=== PATIENT | female | born 1965 | race Caucasian/White ===

== ENCOUNTER 2018-11-08 10:00 | Emergency (ER) | payer OTHER ==
--- NOTE | 2018-11-08 11:20 | RAD REPORT ---
EXAM DESCRIPTION: RAD - Knee Left 3 View - 11/08/2018 11:09 am CLINICAL HISTORY: Nontraumatic knee pain COMPARISON: None. FINDINGS: No fracture, dislocation or periosteal reaction.No measurable joint effusion seen. Mild ma rginal spurring changes are present along the patella. Minimal tendon calcification at the patella in sertion to the tibia. No joint space narrowing. No soft tissue abnormality. IMPRESSION: Mild left knee joint degenerative change as detailed. No acute bone or joint finding. Clinical concerns for internal derangement or occult bony injury could be further assessed with MR im aging.
--- NOTE | 2018-11-08 11:23 | ER ---
Nurse's Notes [facility] Name: Daisy Ren Age: 53 yrs Sex: Female : 1965 Arrival Date: 11/08/2018 Time: 10:03 Bed 23 Private MD: Diagnosis: Left knee instability;ligamentous injury of PCL, left. Presentation: 11/08 10:27 Presenting complaint: Patient states: my L knee keeps coming out since yesterday hj afternoon, denies trauma to the area; pain is 3/10;. Transition of care: patient was not received from another setting of care. Onset of symptoms was November 08, 2018. Risk Assessment: Do you want to hurt yourself or someone else? Patient reports no desire to harm self or others. Initial Sepsis Screen: Does the patient meet any 2 criteria? No. Patient's initial sepsis screen is negative. Does the patient have a suspected source of infection? No. Patient's initial sepsis screen is negative. Care prior to arrival: None. 10:27 Method Of Arrival: Ambulatory 10:27 Acuity: BEE 4 hj Historical: - Allergies: 10:29 Codeine; hj - PMHx: 10:29 Hypertension; hj - PSHx: 10:29 Hysterectomy; hj - Immunization history:: Adult Immunizations up to date. - Ebola Screening: : Patient denies travel to an Ebola-affected area in the 21 days before illness onset. Screenin:04 Abuse screen: Denies threats or abuse. Denies injuries from another. Nutritional aj1 screening: No deficits noted. Tuberculosis screening: No symptoms or risk factors identified. 11:56 Fall Risk Fall in past 12 months (25 points). No secondary diagnosis (0 pts). No IV (0 aj1 pts). Ambulatory Aid- None/Bed Rest/Nurse Assist (0 pts). Gait- Normal/Bed Rest/Wheelchair (0 pts) Mental Status- Oriented to own ability (0 pts). Total Aguilera Fall Scale indicates Low Risk Score (25-44 pts). Family Present and informed to notify staff if they need to leave bedside. Assessment: 11:04 General: Appears in no apparent distress. comfortable, Behavior is calm, cooperative, aj1 appropriate for age. Pain: Denies pain. Neuro: Level of Consciousness is awake, alert, obeys commands, Oriented to person, place, time, situation. Cardiovascular: Patient's skin is warm and dry. Respiratory: Airway is patent Respiratory effort is even, unlabored, Respiratory pattern is regular, symmetrical. GI: No signs and/or symptoms were reported involving the gastrointestinal system. : No signs and/or symptoms were reported regarding the genitourinary system. EENT: No signs and/or symptoms were reported regarding the EENT system. Derm: No signs and/or symptoms reported regarding the dermatologic system. Skin is pink, warm \T\ dry. normal. Musculoskeletal: Range of motion: intact in all extremities, Patient states that her left knee has been giving out, states that right now she has no pain but when the knee pops out she has pain. Vital Signs: 10:29 BP 131 / 80; Pulse 67; Resp 18; Temp 96.4(O); Pulse Ox 97% on R/A; Weight 123.38 kg; hj Height 5 ft. 7 in. (170.18 cm); Pain 3/10; 11:04 BP 127 / 77; Pulse 61; Resp 18; Pulse Ox 96% on R/A; aj1 10:29 Body Mass Index 42.60 (123.38 kg, 170.18 cm) hj ED Course: 10:03 Patient arrived in ED. mr 10:28 Triage completed. hj 10:29 Arm band placed on left wrist. hj 10:45 Chris Vaughan MD is Attending Physician. ps1 11:00 Laura Alejandre, FLY is Primary Nurse. aj1 11:02 X-ray completed. Portable x-ray completed in exam room. Patient tolerated procedure jb2 well. 11:03 XRAY Knee LEFT 3 view In Process Unspecified. EDMS 11:04 Patient has correct armband on for positive identification. Bed in low position. aj1 11:04 No provider procedures requiring assistance completed. aj1 11:21 Herber Mendoza MD is Referral Physician. ps1 11:55 Patient did not have IV access during this emergency room visit. Knee immobilizer aj1 applied on left knee. Administered Medications: No medications were administered Outcome: 11:23 Discharge ordered by . ps1 11:56 Discharged to home ambulatory. aj1 11:56 Condition: good 11:56 Discharge instructions given to patient, Instructed on discharge instructions, follow up and referral plans. medication usage, Demonstrated understanding of instructions, follow-up care, medications, Prescriptions given X 3. 11:57 Patient left the ED. aj1 Signatures: Dispatcher [employer] EDLaura Joseph RN RN aj1 Rivera, Mary mr Buechter, Jesse jb2 Buddy Ayoub RN RN hj Singer, Phillip, MD MD ps1
--- NOTE | 2018-11-08 11:24 | EDPHYS ---
Physician Documentation [facility] Name: Daisy Ren Age: 53 yrs Sex: Female : 1965 Arrival Date: 11/08/2018 Time: 10:03 Bed 23 Private MD: ED Physician Chris Vaughan HPI: 11/08 11:15 This 53 yrs old Female presents to ER via Ambulatory with complaints of Knee ps1 Pain. 11:15 patient states that over the last 2 days she has had atraumatic left knee instability. ps1 States that she was walking in [place] and had marked laxity in the knee in which it felt that it nearly . She rested and then ambulated again and had a repeat experience. She applied KT tape to the knee and came in for evaluation. No swelling or obvious signs of trauma. . Historical: - Allergies: 10:29 Codeine; hj - PMHx: 10:29 Hypertension; hj - PSHx: 10:29 Hysterectomy; hj - Immunization history:: Adult Immunizations up to date. - Ebola Screening: : Patient denies travel to an Ebola-affected area in the 21 days before illness onset. ROS: 11:15 Constitutional: Negative for fever, chills, and weight loss, Eyes: Negative for injury, ps1 pain, redness, and discharge, Cardiovascular: Negative for chest pain, palpitations, and edema, Respiratory: Negative for shortness of breath, cough, wheezing, and pleuritic chest pain, Abdomen/GI: Negative for abdominal pain, nausea, vomiting, diarrhea, and constipation, Skin: Negative for injury, rash, and discoloration, Neuro: Negative for headache, weakness, numbness, tingling, and seizure. 11:15 MS/extremity: Positive for of the left knee, laxity and instability. Exam: 11:15 Constitutional: This is a well developed, well nourished patient who is awake, alert, ps1 and in no acute distress. Head/Face: Normocephalic, atraumatic. Eyes: Pupils equal round and reactive to light, extra-ocular motions intact. Lids and lashes normal. Conjunctiva and sclera are non-icteric and not injected. Chest/axilla: Normal chest wall appearance and motion. Nontender with no deformity. No lesions are appreciated. Cardiovascular: Regular rate and rhythm. No gallops, murmurs, or rubs. Normal PMI, no JVD. No pulse deficits. Respiratory: Lungs have equal breath sounds bilaterally, clear to auscultation and percussion. No rales, rhonchi or wheezes noted. No increased work of breathing, no retractions or nasal flaring. Abdomen/GI: Soft, non-tender, with normal bowel sounds. No distension or tympany. No guarding or rebound. No evidence of tenderness throughout. 11:15 Musculoskeletal/extremity: Extremities: grossly normal except: noted in the left knee: no valgus or varus instability. has moderate posterior laxity. , There is no evidence of deformity, ecchymosis, swelling. Vital Signs: 10:29 BP 131 / 80; Pulse 67; Resp 18; Temp 96.4(O); Pulse Ox 97% on R/A; Weight 123.38 kg; hj Height 5 ft. 7 in. (170.18 cm); Pain 3/10; 11:04 BP 127 / 77; Pulse 61; Resp 18; Pulse Ox 96% on R/A; aj1 10:29 Body Mass Index 42.60 (123.38 kg, 170.18 cm) hj MDM: 11:07 Patient medically screened. ps1 11:21 Data reviewed: vital signs, nurses notes, radiologic studies, and as a result, I will ps1 discharge patient. Counseling: I had a detailed discussion with the patient and/or guardian regarding: the historical points, exam findings, and any diagnostic results supporting the discharge/admit diagnosis, radiology results, the need for outpatient follow up, to return to the emergency department if symptoms worsen or persist or if there are any questions or concerns that arise at home. ED course: OP follow up for further diagnostic imaging after anaprox, medrol, robaxin, knee immobilizer. . 11/08 10:31 Order name: XRAY Knee LEFT 3 view; Complete Time: 11:24 Administered Medications: No medications were administered Disposition: 11/08/18 11:23 Discharged to Home. Impression: Left knee instability, ligamentous injury of PCL, left.. - Condition is Stable. - Discharge Instructions: Knee Immobilizer, Knee Pain. - Prescriptions for Anaprox DS 550 mg Oral Tablet - take 1 tablet by ORAL route every 12 hours As needed; 20 tablet. Robaxin 500 mg Oral Tablet - take 2 tablet by ORAL route every 6 hours As needed; 40 tablet. Medrol (Johnny) 4 mg Oral Tablets, Dose Pack - take 1 tablet by ORAL route as directed - follow package instructions; 1 packet. - Medication Reconciliation Form, Thank You Letter, Antibiotic Education, Prescription Opioid Use form. - Follow up: Herber Mendoza MD; When: 48 Hours; Reason: Further diagnostic work-up, Recheck today's complaints, Continuance of care. Follow up: Emergency Department; When: As needed; Reason: Worsening of condition. - Problem is new. - Symptoms are unchanged. Signatures: Dispatcher [employer] EDMS Laura Alejandre RN RN aj1 Buddy Ayoub RN RN hj Chris Vaughan MD MD ps1 Corrections: (The following items were deleted from the chart) 11:57 11:23 11/08/2018 11:23 Discharged to Home. Impression: Left knee instability; aj1 ligamentous injury of PCL, left.. Condition is Stable. Forms are Medication Reconciliation Form, Thank You Letter, Antibiotic Education, Prescription Opioid Use. Follow up: Dr. Herber Mendoza; When: 48 Hours; Reason: Further diagnostic work-up, Recheck today's complaints, Continuance of care. Follow up: Emergency Department; When: As needed; Reason: Worsening of condition. Problem is new. Symptoms are unchanged. ps1
== END 2018-11-08 11:57 | disposition home or self-care (01) ==
LOC: ER 10:00
DX: S83.522A Sprain of posterior cruciate ligament of left knee, initial encounter (principal); I10 Essential (primary) hypertension; Z88.5 Allergy status to narcotic agent
CPT/HCPCS: 99283

== ENCOUNTER 2019-11-13 17:14 | Emergency (ER) | payer OTHER ==
--- OUTSIDE RECORDS SUMMARY | 2019-11-13 17:18 | XMS REPORT | Continuity of Care Document ---
:1965 Author Organization [facility] t Address [address] [place] [address] Care Team Providers Name Role Phone Unavailable Unavailable Unavailable Payers Payer Name Policy Type Policy Number Effective Date Expiration Date S ource Problems This patient has no known problems. Allergies, Adverse Reactions, Alerts Allergy Allergy Status Severity Reaction(s) Onset Inactive Treating Comm ents Source Name Type Date Date Clinician codeine DA Active SV 2020-0 [facility] shell[facility] FA Active SV 2019-0 [facility] Medications This patient has no known medications. Procedures This patient has no known procedures. Results Test Description Test Time Test Comments Results Result Comments Source Novel Coronavirus 2018 Inhouse 2019-11-02 04:27:00 Test Item Value Reference Range Interpretation Comme nts Novel Coronavirus 2019 Inhouse (test code = COVNONPUI) Negative Negative Novel Coronavirus 2019 [id number] 04:27:00 Test Item Value Reference Range Interpretation Comments Novel Coronavirus 2019 Inhouse (test Negative Negative code = COVNONPUI) PROTHROMBIN [id number] 11:29:00 Test Item Value Reference Range Interpretation Comments PROTHROMBIN TIME PATIENT (test code 12.2 secs 10.4-12.4 N = PTP) THROMBOPLASTIN TIME [id number] 11:29:00 Test Item Value Reference Range Interpretation Comments THROMBOPLASTIN TIME PARTIAL (test 29.9 secs 22-38 N code = PTT) - XR CHEST 2 [id number] 11:19:00 Patient Name: DALE KOROMA Unit No: [id number] EXAMS: CPT CODE: [id number] XR CHEST 2 V 56004 CLINICAL HISTORY: PREOP COMPARISON: NONE PA and lateral films of the chest demonstrate that heart size is normal. Lung chatterjee are clear. No evidence of pneumonia or congestive failure is seen. Regional skeletal structures demonstrate no acute abnormality. IMPRESSION:No evidence of pneumonia or congestive failure is seen. at 1119 Reported and signed by: Bari Sanchez MD CC: vIis [place] Technologist: Wild Daly, RT, CT Trnscrbd D/ (1119) King Orig Print D/T: S: 10/31/2019 (1122) [facility] NAME: DALE KOROMA Radiology Department PHYS: Ivis Esteban MD [address] : 1965 AGE: 54 SEX: F [place], [place] [address] LOC: [place] PHONE #: [phone] EXAM DATE: 10/31/2019 STATUS: PRE [facility] FAX #: [phone] RAD NO: Page 1 Signed ReportCHEMISTRY 7 [id number] 11:18:00 Test Item Value Reference Range Interpretation Comments SODIUM (test code = NA) 142 mEq/L 135-145 N POTASSIUM (test code = K) 4.7 mEq/L 3.5-5.0 N CHLORIDE (test code = CL) 105 mEq/L 100-115 N CARBON DIOXIDE (test code = CO2) 29 mEq/L 22-31 N ANION GAP (test code = GAP) 12.80 10-20 N GLUCOSE (test code = GLU) 86 mg/dL 65-110 N BLOOD UREA NITROGEN (test code = 13 mg/dL 7-18 N BUN) GLOMERULAR FILTRATION RATE (test 75 ml/min >60 N code = GFR) CREATININE (test code = CREAT) 0.8 mg/dL 0.5-1.0 N CALCIUM (test code = CA) 8.8 mg/dL 8.4-10.2 N CBC W/AUTO [id number] 11:01:00 Test Item Value Reference Range Interpretation Comments WHITE BLOOD CELL (test code = WBC) 6.2 K/mm3 6.6-12.1 L RED BLOOD CELL (test code = RBC) 5.17 M/mm3 3.45-5.01 H HEMOGLOBIN (test code = HGB) 15.5 g/dL 10.7-13.9 H HEMATOCRIT (test code = HCT) 46.3 % 32.1-42.1 H MEAN CELL VOLUME (test code = MCV) 90 fL 84.1-94.8 N MEAN CELL HGB (test code = MCH) 30.0 pg 27-35 N MEAN CELL HGB CONCETRATION (test 33.5 gm/dL 32.2-34.1 N code = MCHC) RED CELL DISTRIBUTION WIDTH (test 12.7 % 12.4-16.5 N code = RDW) PLATELET COUNT (test code = PLT) 197 K/mm3 133-385 N MEAN PLATELET VOLUME (test code = 12.3 fl 9.1-12.7 N MPV) NEUTROPHIL % (test code = NT%) 63.4 % 56.5-79.4 N LYMPHOCYTE % (test code = LY%) 26.3 % 14.3-34.3 N MONOCYTE % (test code = MO%) 8.2 % 5.1-10.4 N EOSINOPHIL % (test code = EO%) 1.3 % 0.1-3.0 N BASOPHIL % (test code = BA%) 0.6 % 0.1-1.0 N NEUTROPHIL # (test code = NT#) 4.0 K/mm3 LYMPHOCYTE # (test code = LY#) 1.6 K/mm3 MONOCYTE # (test code = MO#) 0.5 K/mm3 EOSINOPHIL # (test code = EO#) 0.08 K/mm3 BASOPHIL # (test code = BA#) 0.0 K/mm3 RBC MORPHOLOGY REQUIRED (test code NORMAL NORMAL = RBCM) PLATELET MORPHOLOGY REQUIRED (test NORMAL NORMAL code = PLTMR) URINALYSIS [id number] 10:54:00 Test Item Value Reference Range Interpretation Comments UA COLOR (test code = COLU) YELLOW YELLOW UA APPEARANCE (test code = CLEAR CLEAR APPU) UA GLUCOSE DIPSTICK (test code NEGATIVE NEG = DGLUU) UA BILIRUBIN DIPSTICK (test NEGATIVE NEG code = BILU) UA KETONE DIPSTICK (test code NEGATIVE NEG = KETU) UA SPECIFIC GRAVITY (test code 1.015 1.001-1.035 N = SGU) UA BLOOD DIPSTICK (test code = NEG NEG AARON) UA PH DIPSTICK (test code = 5.0 5-9 BALJEET) UA PROTEIN DIPSTICK (test code NEGATIVE NEG = PROU) UA UROBILINIOGEN DIPSTICK NEGATIVE mg/dL NEG (test code = URO) UA NITRITE DIPSTICK (test code NEG NEG = LEONIE) UA LEUKOCYTE ESTERASE DIPSTICK NEG NEG (test code = LEUU) UA WBC (test code = WBCU) 0-2 #/hpf NONE SEEN UA RBC (test code = RBCU) 0-2 #/hpf NONE SEEN UA EPITHELIAL CELLS (test code RARE #/HPF RARE-FEW = EPIU) UA BACTERIA (test code = BACU) RARE /HPF RARE-FEW UA MUCUS (test code = MUCU) RARE NONE SEEN URINE SAMPLE: CLEAN CATCH
[2019-11-13 17:54] LABS: Absolute Lymphocytes (CBC) 2.7 K/uL (0.7-4.9); Basophils % 0.7 % (0-1.3); Hematocrit 44.4 % (36.0-45.0); Lymphocytes % 25.8 % (15.3-44.8); MPV 10.2 fL (7.6-11.3); RBC Red Blood Cell Count 5.16 M/uL (3.86-4.86)
[2019-11-13 17:59] LABS: Protime INR 1.05
[2019-11-13] MEDS ORDERED: DESMOPRESSIN 4 MCG/ML AMP ONE (18:05)
[2019-11-13 18:16] LABS: Albumin 3.8 g/dL (3.4-5.0); Bilirubin Total 0.4 mg/dL (0.2-1.0); Potassium 3.9 mmol/L (3.5-5.1); Protein, Total 7.3 g/dL (6.4-8.2)
--- NOTE | 2019-11-13 18:19 | ER ---
Nurse's Notes [facility] Name: Daisy Ren Age: 54 yrs Sex: Female : 1965 Arrival Date: 11/13/2019 Time: 17:17 Bed 4 Private MD: Diagnosis: Other abnormal uterine and vaginal bleeding Presentation: 11/12 17:17 Chief complaint: Patient states: s/p rectocele surgery 1.5 weeks ago, today reports sv heavy vaginal bleeding with clots. States she has gone through 4 pads in 20 mins and currently has a tampon in. 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 Risk Assessment: Do you want to hurt yourself or someone else? Patient reports no desire to harm self or others. Onset of symptoms was November 13, 2019. 17:17 Method Of Arrival: Ambulatory sv 17:17 Acuity: BEE 3 sv 17:54 Coronavirus screen: Patient denies a cough. Patient reports a measured and/or ph subjective temperature greater than 100.4F. Patient denies measured and/or subjective temperature greater than 100.4F prior to today's visit. Patient denies travel on a cruise ship or to a country the [facility] currently lists as an affected area. Patient denies contact with known and/or suspected case of COVID-19. Ebola Screen: No symptoms or risks identified at this time. Initial Sepsis Screen: Does the patient meet any 2 criteria? No. Patient's initial sepsis screen is negative. Does the patient have a suspected source of infection? No. Patient's initial sepsis screen is negative. Triage Assessment: 17:19 General: Appears in no apparent distress. uncomfortable, Behavior is cooperative, sv agitated. Neuro: Level of Consciousness is awake, alert, obeys commands, Oriented to person, place, time, situation, Gait is steady. Respiratory: Respiratory effort is even, unlabored, Respiratory pattern is regular, tachypnea. : Reports vaginal bleeding that is bright red, with clots, heavy flow since 20 mins ago. 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 - Social history:: Patient/guardian denies using alcohol, street drugs, Smoking status: Patient denies any tobacco usage or history of. - Family history:: not pertinent. - Hospitalizations: : No recent hospitalization is reported. Screenin:53 Abuse screen: Denies threats or abuse. Denies injuries from another. Nutritional ph screening: No deficits noted. Tuberculosis screening: No symptoms or risk factors identified. Fall Risk None identified. Assessment: 17:27 General: Appears in no apparent distress. uncomfortable, obese, well groomed, Behavior ph is cooperative, appropriate for age, anxious. Pain: Complains of pain in suprapubic area Quality of pain is described as crampy. Neuro: Level of Consciousness is awake, alert, obeys commands, Oriented to person, place, time, situation. Cardiovascular: Capillary refill < 3 seconds in bilateral fingers Patient's skin is warm and dry. Respiratory: Airway is patent Respiratory effort is even, unlabored, Respiratory pattern is regular, symmetrical. : Reports. 19:15 General: Appears in no apparent distress. comfortable, Behavior is calm, cooperative, rr5 appropriate for age, awaiting for other facility acceptance. Neuro: Level of Consciousness is awake, alert, obeys commands, Oriented to person, place, time, situation. Cardiovascular: Capillary refill < 3 seconds Patient's skin is warm and dry. Respiratory: Airway is patent Respiratory effort is even, unlabored, Respiratory pattern is regular, symmetrical. : Reports vaginal bleeding that is. EENT: No signs and/or symptoms were reported regarding the EENT system. Derm: Skin is intact, is healthy with good turgor, Skin temperature is warm. Musculoskeletal: Circulation, motion, and sensation intact. Capillary refill < 3 seconds. 19:45 Reassessment: report given to vasquez BILL from [facility] and accepted the case.rr5 20:14 Reassessment: Patient appears in no apparent distress at this time. Patient is alert, rr5 oriented x 3, equal unlabored respirations, skin warm/dry/pink. Patient states symptoms have improved. 20:18 Reassessment: Patient appears in no apparent distress at this time. Patient is alert, rr5 oriented x 3, equal unlabored respirations, skin warm/dry/pink. report given to [facility] awake alert no complaints made. Vital Signs: 17:27 BP 160 / 81; Pulse 106; Resp 18; Temp 98.2; Pulse Ox 99% on R/A; ph 19:36 BP 109 / 64; Pulse 100; Resp 16; Pulse Ox 99% ; rr5 20:14 BP 131 / 77; Pulse 79; Resp 17; Temp 98; Pulse Ox 99% ; rr5 ED Course: 17:17 Patient arrived in ED. sv 17:17 Sue Fallon, RN is Primary Nurse. ph 17:18 Marilee Ramachandran MD is Attending Physician. ma2 17:18 Triage completed. sv 17:19 Arm band placed on. sv 17:40 Assist provider with pelvic exam: Set up pelvic tray. Performed by Marilee Ramachandran MD ph Vaginal packing inserted. Patient tolerated poorly. 17:45 Initial lab(s) drawn, by sc, sent to lab. Inserted saline lock: 22 gauge in right kj1 antecubital area, using aseptic technique. Blood collected. 17:59 Patient has correct armband on for positive identification. Placed in gown. Bed in low ph position. Call light in reach. Side rails up X 1. Pulse ox on. NIBP on. Door closed. Noise minimized. Warm blanket given. 20:18 Patient transferred, IV remains in place. intact, No redness/swelling at site. rr5 Administered Medications: 18:25 Drug: Vasopressin 20 units Route: IV; Rate: calculated rate; Site: right antecubital; ph 19:00 Follow up: Response: No adverse reaction; IV Status: Completed infusion; IV Intake: [id number] 18:25 Drug: NS 0.9% 500 ml Route: IV; Rate: bolus; Site: right antecubital; ph 20:14 Follow up: Response: No adverse reaction; IV Status: Completed infusion; IV Intake: rr5 500ml Intake: 19:00 IV: 50ml; Total: 50ml. rr5 20:14 IV: 500ml; Total: 550ml. rr5 Outcome: 18:18 ER care complete, transfer ordered by . marbella 20:17 Transferred by ground EMS [facility] Transfer form completed. rr5 20:17 Condition: stable 20:17 Instructed on the need for transfer. 20:18 Patient left the ED. rr5 Signatures: Michelle Durán RN RN Sue Garcia RN RN Marilee Ramachandran MD MD ma2 Bowen Price RN RN rr5 Jie Caceres kj1 Corrections: (The following items were deleted from the chart) 17:31 17:17 Chief complaint: Patient states: s/p rectocele surgery 1.5 weeks ago, today sv reports heavy vaginal bleeding with clots. States she has gone through 4 pads in 20 mins and currently has a tampon in. She took her [employer] med. sv
--- NOTE | 2019-11-13 18:19 | EDPHYS ---
Physician Documentation [facility] Name: Daisy Ren Age: 54 yrs Sex: Female : 1965 Arrival Date: 11/13/2019 Time: 17:17 Bed 4 Private MD: ED Physician Marilee Ramachandran HPI: 11/12 17:45 This 54 yrs old Female presents to ER via Ambulatory with complaints of ma2 Vaginal Bleeding. 17:45 The patient presents with vaginal bleeding that is. Onset: The symptoms/episode ma2 began/occurred suddenly, 1 hour(s) ago. Associated signs and symptoms: Pertinent negatives: diarrhea, dysuria, hematuria, vaginal bleeding. Severity of symptoms: At their worst the symptoms were mild, in the emergency department the symptoms are unchanged. The patient has not experienced similar symptoms in the past. s/p rectocele 1 week ago here with vaginal bleeding, constant, she is vitally stable . 17:45 had 3 pads in the last 20 min. ma2 [employer]: 19:10 LMP N/A - Irregular menses rr5 Historical: - Allergies: 17:19 Codeine; sv - Home Meds: 17:59 candesartan 16 mg oral tab 1 tab once daily [Active]; fexofenadine 60 mg Oral tab 1 tab ph 2 times per day [Active]; fluticasone 50 mcg/actuation nasal spsn 1 spray once daily [Active]; guanfacine 1 mg Oral tab 1 tab once daily [Active]; montelukast 10 mg oral tab 1 tab once daily [Active]; - PMHx: 17:19 Hypertension; sv 17:38 von Willebrand factor; sv - PSHx: 17:19 Hysterectomy; sv 17:19 Rectocele; sv - Immunization history:: Adult Immunizations unknown. - Social history:: Patient/guardian denies using alcohol, street drugs, Smoking status: Patient denies any tobacco usage or history of. - Family history:: not pertinent. - Hospitalizations: : No recent hospitalization is reported. ROS: 17:45 Constitutional: Negative for fever, chills, and weight loss, Eyes: Negative for injury, ma2 pain, redness, and discharge, ENT: Negative for injury, pain, and discharge, Neck: Negative for injury, pain, and swelling, Cardiovascular: Negative for chest pain, palpitations, and edema, Respiratory: Negative for shortness of breath, cough, wheezing, and pleuritic chest pain. 17:45 All other systems are negative. Exam: 17:45 Constitutional: This is a well developed, well nourished patient who is awake, alert, ma2 and in no acute distress. Chest/axilla: Normal chest wall appearance and motion. Nontender with no deformity. No lesions are appreciated. Cardiovascular: Regular rate and rhythm with a normal S1 and S2. No gallops, murmurs, or rubs. Normal PMI, no JVD. No pulse deficits. Respiratory: Lungs have equal breath sounds bilaterally, clear to auscultation and percussion. No rales, rhonchi or wheezes noted. No increased work of breathing, no retractions or nasal flaring. Abdomen/GI: Soft, non-tender, with normal bowel sounds. No distension or tympany. No guarding or rebound. No evidence of tenderness throughout. Back: No spinal tenderness. No costovertebral tenderness. Full range of motion. Female : has mutiple sutures in perinium.. has tampon in.. she has minimal bleeding around tampon.No Normal external genitalia. Skin: Warm, dry with normal turgor. Normal color with no rashes, no lesions, and no evidence of cellulitis. MS/ Extremity: Pulses equal, no cyanosis. Neurovascular intact. Full, normal range of motion. Neuro: Awake and alert, GCS 15, oriented to person, place, time, and situation. Cranial nerves II-XII grossly intact. Motor strength 5/5 in all extremities. Sensory grossly intact. Cerebellar exam normal. Normal gait. Vital Signs: 17:27 BP 160 / 81; Pulse 106; Resp 18; Temp 98.2; Pulse Ox 99% on R/A; ph 19:36 BP 109 / 64; Pulse 100; Resp 16; Pulse Ox 99% ; rr5 20:14 BP 131 / 77; Pulse 79; Resp 17; Temp 98; Pulse Ox 99% ; rr5 MDM: 17:18 Patient medically screened. ma2 17:45 Differential diagnosis: dysfunctional uterine bleeding, menometrorrhagia, menorrhea, ma2 uterine fibroids. Data reviewed: vital signs, nurses notes. Counseling: I had a detailed discussion with the patient and/or guardian regarding: the historical points, exam findings, and any diagnostic results supporting the discharge/admit diagnosis, the presence of at least one elevated blood pressure reading (>120/80) during this emergency department visit, the need to transfer to another facility. Response to treatment: the patient's symptoms have markedly improved after treatment. ED course: i called her ophthalmology surgical technician dr. christopher and she advised that she is not oncall and to call dr. clements. I discussed with dr. clements and she advised that she check charts and call back.. i called dr. patel her deputy building guard and she advised to keep tampon and pack outer part of vagina with simple gauze, she accepted her to be transferred to [facility], and for patient to go to the ER. 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 ED course: patient already took 1 nasal spray of the humate p nasal spray prior to arrival.. dr. clements advised to give vasopressen 0.3 leslye/kg infusion if bleeding continue.. . 11/12 17:18 Order name: CBC with Diff; Complete Time: 18:19 ma2 11/12 17:18 Order name: CMP; Complete Time: 18:19 ma2 11/12 17:18 Order name: PT-INR; Complete Time: 18:19 ma2 11/12 17:18 Order name: Ptt, Activated; Complete Time: 18:19 ma2 11/12 17:18 Order name: Type And Screen; Complete Time: 19:19 ma2 Administered Medications: 18:25 Drug: Vasopressin 20 units Route: IV; Rate: calculated rate; Site: right antecubital; ph 19:00 Follow up: Response: No adverse reaction; IV Status: Completed infusion; IV Intake: [id number] 18:25 Drug: NS 0.9% 500 ml Route: IV; Rate: bolus; Site: right antecubital; ph 20:14 Follow up: Response: No adverse reaction; IV Status: Completed infusion; IV Intake: rr5 500ml Disposition: 11/13/19 18:18 Transfer ordered to [facility]. Diagnosis is Other abnormal uterine and vaginal bleeding. - Reason for transfer: Higher level of care. - Accepting physician is Dr. Villarreal. - Condition is Stable. - Problem is new. - Symptoms are unchanged. Signatures: Dispatcher [facility] EDMS LeeannaMichelle RN RN sv Nieto, Roman, MD MD rn Hall, Patricia, RN RN Marilee Ramachandran MD MD ma2 Bowen Price RN RN rr5 Corrections: (The following items were deleted from the chart) 20:18 18:18 11/13/2019 18:18 Transfer ordered to [facility]. Diagnosis is Other rr5 abnormal uterine and vaginal bleeding. Reason for transfer: Higher level of care. Accepting physician is Dr. Villarreal. Condition is Stable. Problem is new. Symptoms are unchanged. ma2
[2019-11-13] MEDS ORDERED: NA CHLORIDE 0.9% 50 ML IV ONE (18:20)
[2019-11-13] MEDS ORDERED: NA CHLORIDE 0.9% 500 ML ONE (18:20)
[2019-11-13 20:23] VITALS: O2SAT 99
[2019-11-13 20:25] VITALS: BP 131/77; TEMP 98
== END 2019-11-13 20:18 ==
LOC: ER 17:14
DX: N93.8 Other specified abnormal uterine and vaginal bleeding (principal); I10 Essential (primary) hypertension; Z88.5 Allergy status to narcotic agent
CPT/HCPCS: 96365; 96361; 85025; 36415; 86900; 86850; 85610; 86901; 85730; 80053; 99285; J2597; J7040

== ENCOUNTER 2022-12-29 06:59 | Inpatient (IN) | payer BC, OTHER ==
--- OUTSIDE RECORDS SUMMARY | 2022-12-29 07:01 | XMS REPORT | Continuity of Care Document ---
:1965 Author Organization [facility] t Address [address] [facility]. [address] [place] [address] Care Team Providers Name Role Phone Sophia Bassett MD Primary Care Physician Ivis Latham Attending Clinician Unavailable CHRISSY VALLE Attending Clinician Unavailable Referred, Self Admitting Clinician Unavailable KNOW, DOES_NOT Admitting Clinician Unavailable Physician, No Primary or Family Admitting Clinician Unavaila ble Payers Payer Name Policy Type Policy Number Effective Date Expiration Date S ource Problems Condition Condition Condition Status Onset Resolution Last Treating Co mments Source Name Details Category Date Date Treatment Clinician Date Acute Acute Disease Active Overview: Method i medial medial 5-[address] meniscus meniscus 00:00: g of this Hos jr tear of tear of 00 note l left knee left knee might be different from the original. Added automatic ally from request for surgery [id number] Loose body Loose body Disease Active Overview : Methodi of left of left 5-[address] knee knee 00:00: g of this Hospita 00 note l might be different from the original. Added automatic ally from request for surgery [id number] Allergies, Adverse Reactions, Alerts Allergy Allergy Status Severity Reaction(s) Onset Inactive Treating Comm ents Source Name Type Date Date Clinician Codeine Propensi Active Hypertension Elevated Methodi ty to 3-[address] adverse 00:00: pressure Hospita reaction 00 l s to drug Shellfis Propensi Active Swelling Meth manish h ty to 3-09 st Derived adverse 00:00: Hospita reaction 00 l s to drug codeine DA Active SV HIGH BLOOD 2019-0 [facility] PRESSURE 6-22 Clear 00:00: Roberto [address] [facility] shellfis FA Active SV ANAPHYLAXIS 2019-0 [facility] h SHOCK 6-22 Clear derived 00:00: Roberto [address] [facility] codeine DA Active SV 2020-0 [facility] 6-22 [facility] [place] shellfis FA Active SV 2020-0 [facility] h 6-22 [facility] derived 00:00: [facility] [place] Family History Family Member Diagnosis Comments Start Date Stop Date Source Natural mother Cancer [facility] Social History Social Habit Start Date Stop Date Quantity Comments Source Sexual orientation 2020-07-16 Heterosexual [facility]ist 12:20:36 (finding) Hospital Gender identity 2020-07-16 Identifies as Method ist 12:18:18 female gender [facility] (finding) Alcohol intake 2021-04-11 2021-04-11 Lifetime [facility] 00:00:00 00:00:00 non-drinker [facility] (finding) History of Social 2021-04-11 2021-04-[address] function 00:00:00 00:00:00 Hospital Tobacco use and 2020-07-17 2020-07-17 Smokeless tobacco Me [facility]ist exposure 00:00:00 00:00:00 non-user Hospital Sex Assigned At [birth year] F [facility] 00:00:00 00:00:00 Hospital Smoking Status Start Date Stop Date Source Never smoked tobacco [facility] Medications Ordered Filled Start Stop Current Ordering Indication Dosage Frequency Signature Comments Components Source Medication Medication Date Date Medication? Clinician (SIG) Name Name meloxicam 2020-05 Yes TAKE 1 Method i (MOBIC) 15 2-[address] mg tablet 00:00: MOUTH Hospita 00 EVERY DAY l methylPREDN Yes [id number] 40mg M ethodi ISolone 5-27 st acetate 13:45: Hospita (DEPO-MEDRO 00 l L) injection 40 mg meloxicam Yes TAKE 1 Method i (MOBIC) 15 5-[address] mg tablet 00:00: MOUTH [facility]ospita 00 EVERY DAY l methylPREDN Yes [id number] 40mg Methodi ISolone 07-17 acetate 15:45: Hospita (DEPO-MEDRO 00 l L) injection 40 mg fexofenadin Yes Method i e (Valerie 07-17 st Allergy) 08:53: Hospita 180 MG 15 l tablet candesartan Yes Method i (ATACAND) 07-17 st 32 MG 08:53: Hospita tablet 15 l ALPRAZolam Yes Methodi (Xanax) 0.5 07-17 st MG tablet 08:53: Hospita 15 l Procedures This patient has no known procedures. Plan of Care Planned Activity Planned Date Details Comments Source Future Scheduled 2022-12-14 [facility] Test 14:22:58 malignant neoplasm of colon (procedure) [code = 492919398] Future Scheduled 2022-12-14 [facility] Test 14:22:58 malignant neoplasm of colon (procedure) [code = 890185380] Future Scheduled 2022-12-14 [facility] Test 14:22:58 malignant neoplasm of colon (procedure) [code = 139373894] Future Scheduled 2022-12-14 Hepatitis C [facility] Test 14:22:58 screening (procedure) [code = 307463443] Future Scheduled 2022-12-14 [facility] Test 14:22:58 malignant neoplasm of cervix (procedure) [code = 588924303] Future Scheduled 2022-12-14 BREAST CANCER [facility] Test 14:22:58 SCREENING [code = BREAST CANCER SCREENING] Future Scheduled 2022-12-14 [facility] Test 14:22:58 malignant neoplasm of colon (procedure) [code = 334542901] Future Scheduled 2022-12-14 [facility] Test 14:22:58 malignant neoplasm of colon (procedure) [code = 409126435] Future Scheduled 2022-12-14 SHINGLES VACCINES [facility] Test 14:22:58 (1 of 2) [code = SHINGLES VACCINES (1 of 2)] Future Scheduled 2022-12-14 COVID-19 VACCINE (3 [facility] Hospital Test 14:22:58 - Pfizer series) [code = COVID-19 VACCINE (3 - Pfizer series)] Future Scheduled 2022-12-14 INFLUENZA VACCINE [facility] Hospital Test 14:22:58 [code = INFLUENZA VACCINE] Encounters Start End Encounter Admission Attending Care Care Encounter Source Date/Time Date/Time Type Type Clinicians Facility Department ID 2019-11-13 Inpatient [facility] ROSALIA [id number] [facility] 21:29:00 99 [facility] 2019-10-31 Inpatient ODESSA Latham, [facility] ANDREIA [id number] [facility] 11:00:00 Ivis 96 [facility] 2021-04-11 2021-04-11 Outpatient MAFFET, [facility] [id number] [place] 00:00:00 00:00:00 CHRISSY 824 Method i 2021-04-11 2021-04-11 Outpatient MAFFET, [facility] [id number] [place] 00:00:00 00:00:00 CHRISSY 959 Method i 2021-04-11 2021-04-11 Outpatient MAFFET, [facility] [id number] [place] 00:00:00 00:00:00 CHRISSY 269 Method i 2020-10-04 2020-10-04 Outpatient MAFFET, [facility] [id number] [place] 00:00:00 00:00:00 CHRISSY 612 Method i 2020-09-18 2020-09-18 Outpatient MAFFET, [facility] [id number] [place] 00:00:00 00:00:00 CHRISSY 159 Method i 2020-09-18 2020-09-18 Outpatient MAFFET, [facility] [id number] [place] 00:00:00 00:00:00 CHRISSY 776 Method i 2020-09-04 2020-09-04 Outpatient MAFFET, [facility] [id number] [place] 00:00:00 00:00:00 CHRISSY 481 Method i 2020-09-04 2020-09-04 Outpatient MAFFET, [facility] [id number] [place] 00:00:00 00:00:00 CHRISSY [address] 2020-07-17 2020-07-17 Outpatient MAFFET, [facility] [id number] [place] 00:00:00 00:00:00 CHRISSY [address] 2020-07-17 2020-07-17 Outpatient TIMFECindi, [facility] [id number] [place] 00:00:00 00:00:00 CHRISSY [address] 2019-10-31 2019-10-31 Outpatient ISABELL Latham [id number] [facility] 11:44:00 11:44:00 Ivis [facility] Results Test Description Test Time Test Comments Results Result Comments Source HGB HCT 2019-11-13 22:00:00 Test Item Value Reference Range Interpretation Comme nts HEMOGLOBIN (test code = HGB) 14.8 g/dL 10.7-13.9 H HEMATOCRIT (test code = HCT) 43.9 % 32.1-42.1 H Novel Coronavirus 2019 [id number] 04:27:00 Test Item Value Reference Range Interpretation Comments Novel Coronavirus 2019 Inhouse (test Negative Negative code = COVNONPUI) Novel Coronavirus 2019 [id number] 04:27:00 Test Item Value Reference Range Interpretation Comments Novel Coronavirus 2019 Inhouse (test Negative Negative code = COVNONPUI) PROTHROMBIN [id number] 11:29:00 Test Item Value Reference Range Interpretation Comments PROTHROMBIN TIME PATIENT (test code 12.2 secs 10.4-12.4 N = PTP) THROMBOPLASTIN TIME [id number] 11:29:00 Test Item Value Reference Range Interpretation Comments THROMBOPLASTIN TIME PARTIAL (test 29.9 secs 22-38 N code = PTT) - XR CHEST 2 [id number] 11:19:00 Patient Name: DALE KOROMA Unit No: [id number] EXAMS: CPT CODE: [id number] XR CHEST 2 V 18934 CLINICAL HISTORY: PREOP COMPARISON: NONE PA and lateral films of the chest demonstrate that heart size is normal. Lung chatterjee are clear. No evidence of pneumonia or congestive failure is seen. Regional skeletal structures demonstrate no acute abnormality. IMPRESSION: No evidence of pneumonia or congestive failure is seen. at 1119 Reported and signedby: Bari Sanchez MD CC: Ivis Latham Technologist: Wild Daly, RT, CT Trnscrbd D/ (1119) tMICHAELYOS Orig Print D/T: S: 10/31/2019 (1122) [facility] NAME: DALE KOROMA Radiology Department PHYS: Ivis Esteban MD [address] : 1965 AGE: 54 SEX: F [place], [place] [address] LOC: [place] PHONE #: [phone] EXAM DATE: 10/31/2019 STATUS: PRE SDC FAX #: [phone] RAD NO: Page 1 Signed ReportCHEMISTRY 7 [id number] 11:18:00 Test Item Value Reference Range Interpretation [...] CA) 8.8 mg/dL 8.4-10.2 N CBC W/AUTO [id number] 11:01:00 Test Item Value Reference Range Interpretation [...] (test NORMAL NORMAL code = PLTMR) URINALYSIS [id number] 10:54:00 Test Item Value Reference Range Interpretation [...] RARE NONE SEEN URINE SAMPLE: CLEAN CATCH Notes Date/Time Note Provider Source 2019-11-13 21:35:00-00:00 [facility] EMERGENCY PROVIDER REPORT REPORT#:[id number] REPORT STATUS: Signed DATE:11/13/19 TIME: 2134 PATIENT: DALE KOROMA UNIT #: [id number] ROOM/BED: AGE: 54 SEX: F PCP PHYS: Ivis Latham MD SERVICE AUTHOR: Misti Augustin MD * ALL edits or amendments must be made on the [employer] document * HPI- Female General Initial Greet Date/Time 11/13/192130 Presentation Chief Complaint Vaginal bleeding Hx Obtained From Patient )( Sudden in Onset? Yes Free Text HPI Notes Free Text HPI Notes This is a 54-year-old female with history of von Willebrand's disease and history of hysterectomy who is approximately 10 days status post posterior colporrhaphy for symptomatic stage II rectocele who presents the [facility] department for vaginal bleeding. Patient was initially seen by Julissa. She pr esented there due to heavy bleeding with passage of albert ts. Patient was treated with vaginal packing and IV vasopressin. Her symptoms resolved. She was macdonald sferred to our emergency department for further management. Seed Packer - Dr Ivis Latham Risk- Female Risk Stratification Ectopic No risk factors Review of Systems ROS Statements Complete sys rev neg except as marked. Basic Review of Systems Basic ROS EYES: No redness, RESP: No SOB , CV: No chest pain, HEM: No bleeding/ bruising, PSYCH: NL thought content Focused Review of Systems Constitutional Denies: Chills, Fatigue, Fever, Lethargy, Malais e, Recent wt loss, Weakness - generalized. Female Reports: Vaginal bleeding - abnl. Past Medical History - Adult Stated Complaint VAGINAL BLEEDING POST HYSTERECT ROSE Allergies Coded Allergies: codeine (Severe, HIGH BLOOD PRESSURE 10/31/19) shellfish derived (Severe, ANAPHYLAXIS SHOCK ) Home Medications Reported Medications MONTELUKAST (SINGULAIR) 10 MG PO BEDTIME FEXOFENADINE HCL (VALERIE ALLERGY) 60 MG PO BID FLUTICASONE PROPIONATE (FLONASE 50 MCG/ACT NASAL ) 1 SPRAY NASAL DAILY guanFACINE (TENEX) 1 MG PO DAILY CANDESARTAN (ATACAND) 16 MG PO DAILY Physical Exam Vital Signs Vital Signs First Documented: Result Date Time Pulse Ox 98 11/12 2130 B/P 124/63 11/12 2130 B/P Mean 83 11/12 2130 O2 Delivery Room air 11/12 2130 Temp 37.0 11/12 2130 Pulse 89 11/12 2130 Resp 18 11/12 2130 Last Documented: Result Date Time Pulse Ox 100 11/12 2302 B/P 150/71 11/12 2302 B/P Mean 97 11/12 2302 Temp 36.8 11/12 2302 Pulse 85 11/12 2302 Resp 17 11/12 2302 O2 Delivery Room air 11/12 2130 Review of Vital Signs Reviewed Basic Physical Exam Basic PE GEN: Well appearing /NAD, HEAD: Atraumatic/NC, EYES: PERRL, conj clear, ENT: Membranes moist (airway patent), NE CK: Supple (no stridor), RESP: No resp distress (normal RR), ABD: Soft/non-tender, EXT: No gross abnormality (FROM), SKIN: No rashes, warm/dry, NEURO: alert oriented , NEURO: gross movement NL, PSYCH: NL thought content (normal affect) Focused PE Genitourinary General Survey Coordinator present Text/Dict Notes upon inspection: suture material in place, slow ooze visualized from vagina, unable to visualize source of bleed digital exam: no retained tampon or packing Interpretation Diagnostics Lab Results Interpretation Results Laboratory Tests 11/13/192154: [Embedded Image Not Available] Laboratory Tests: 11/12 2154 Hematology Hgb (10.7 - 13.9 g/dL) 14.8 H Hct (32.1 - 42.1 %) 43.9 H Re-Evaluation MDM Free Text MDM Notes Free Text MDM Notes No heavy bleeding in the emergency department. Patient was seen by Dr. Latham and cleared for d ischarge. Return precautions given. ED Course Medication(s) Ordered Medication(s) Ordered: Disinfectants (For Non-Dermato Sig/Jaki Start time Last Medication Dose Route Stop Time Status Admin Silver Nitrate 4 TAMIKA X1ED STA 11/12 2230 DC TOPICAL 11/13 2231 Silver Nitrate 4 TAMIKA X1ED STA 11/12 2229 DC TOPICAL 11/12 2230 224 Silver Nitrate 2 TAMIKA X1ED STA 11/12 2214 DC / TOPICAL 11/13 2215 222 Consultation Consultation Referral/Consult Name Ivis Latham MD Apartment Manager Called DRAGLINE OILER Requested Call Time 2300 Requested Call Date 11/13/19 Call Returned Call returned Call Returned Time 2304 Call Returned Date 11/13/19 Apartment Manager Will see patient Patient Discharge Departure Vital Signs/Condition Vital Signs First Documented: Result Date Time Pulse Ox 98 11/12 2130 B/P 124/63 11/12 2130 B/P Mean 83 11/12 2130 O2 Delivery Room air 11/12 2130 Temp 37.0 11/12 2130 Pulse 89 11/12 2130 Resp 18 11/12 2130 Last Documented: Result Date Time Pulse Ox 100 11/12 2302 B/P 150/71 11/12 230 B/P Mean 97 11/12 2302 Temp 36.8 11/12 2302 Pulse 85 11/12 2303 Resp 17 11/123 O2 Delivery Room air 11/12 2130 All vital signs available at the time of this en try have been reviewed. Condition Stable Clinical Impression Clinical Impression Primary Impression: Vaginal bleeding Secondary Impressions: Von Willebrand disease Disposition Decision Discharge )( Discharged to Home Yes )( Time 2254 )( Date 11/13/19 Discharge/Care Plan Counseled Regarding Diagnosis, Lab resul ts, Need for follow-up, When to return to ED Referrals Self Referred at 00[facility] #:[id number] END OF REPORT 2019-11-03 12:42:00-00:00 [id number] [facility] [address] [place], [place] [address] PATIENT NAME: DALE KOROMA ADMIT DATE: 11/03/19 ACCOUNT NO: [id number] ROOM NO: AGE: 54 SEX: F ADMITTING PHYSICIAN: ATTENDING PHYSICIAN: Ivis Latham MD OPERATION DATE: 11/03/2019 PREOPERATIVE DIAGNOSES: 1. Rectocele. 2. Incomplete emptying with defecation. POSTOPERATIVE DIAGNOSES: 1. Rectocele. 2. Incomplete emptying with defecation. PROCEDURE: Posterior colporrhaphy. SURGEON: Ivis Latham MD COMPOUNDING PHARMACY TECHNICIAN: ANESTHESIA: LMA and local. ESTIMATED BLOOD LOSS: 30 mL. INDICATIONS: Ms. Koroma is a 54-year-old female who presented with symptomatic stage II rectocele. After extensive counseling, she elected to have surgical intervention. FINDINGS: Rectocele. PROCEDURE IN DETAIL: The patient was terrance en to the operating room where she was prepped and draped in the [facility] sterile fashion in a dorsal lithotomy position. The posterior vaginal wall and perineum were injected with 0.25% Marcaine with epinephrine. A small ellipti adi incision was made at the introitus and previous scarring was excised. The posterior vaginal epit helium was then opened in the midline. The vaginal epithelium was sharply diss ected from the underlying rectovaginal tissue. The rec tovaginal tissue was serially plicated with 2-0 PDS suture. The perineal body was reapproximated wit h 2-0 PDS suture. Good hemostasis was noted. The vaginal epithelium was lightly trimmed. The vaginal epithelium was closed in a continuous fashion wi th 2-0 Vicryl suture. Again, good hemostasis was noted. Vagina was irrigated, hemostasis assured. The patient tolerated the procedure well. Sponge , lap, and needle counts were correct x2. She was taken to the recovery room i n stable condition. Dictated By: Ivis Latham MD PATIENT NAME: DALE KOROMA 6 WT: OP:DERRICK/SILVERIO/MARY Conf#: [id number]/DID#: [id number] Authenticated by Ivis Latham MD On 11/04/19 12:20:54 PM at 1221 PATIENT NAME: DALE KOROMA 6 2019-10-31 10:51:00-00:00 [id number] [facility] [address] [place] [address] PATIENT NAME: DALE KOROMA ADMIT DATE: 11/03/19 ACCOUNT NO: [id number] ROOM NO: AGE: 54 SEX: F ADMITTING PHYSICIAN: ATTENDING PHYSICIAN: Ivis Latham MD Order: [id number] Test Reason : PRE-OP Test Date/Time Stamp: ThuOct 31 2019 10:51:52 Blood Pressure : / mmHG Vent. Rate : 060 BPM Atrial Rate : 060 BPM P-R Int : 162 ms QRS Dur : 090 ms QT Int : 430 ms P-R-T Axes : 041 069 040 degree s QTc Int : 430 ms Normal sinus rhythm Normal ECG No previous ECGs available Confirmed by MILLI GARIBAY MD ([id number]) on 11/03/19 4:37:04 PM Referred By: Ivis Latham Confirmed by:MILLI CABRALES MD Electronically Signed by Milli Garibay MD on 0 11/03/19 at 3374 PATIENT NAME: DALE KOROMA 96
[2022-12-29] MEDS ORDERED: MAGNESIUM SULFATE 1 gm IVPB 1 GM/100 ML BAG IV ONE (07:28)
[2022-12-29] MEDS ORDERED: METOPROLOL TAR 50 MG TAB ONE (07:28)
[2022-12-29] MEDS ORDERED: ASPIRIN 81 MG CHEWABLE TABLET ONE (07:28)
[2022-12-29] MEDS ORDERED: METOPROLOL TARTRATE 5 MG/5 ML INJ IV ONE (07:28)
[2022-12-29] MEDS ORDERED: FAMOTIDINE 20 MG/2 ML VIAL IV ONE (07:28)
[2022-12-29] MEDS ORDERED: NA CHLORIDE 0.9% 1,000 ML ONE (07:29)
[2022-12-29 07:36] LABS: Absolute Lymphocytes (CBC) 2.2 K/uL (0.7-4.9); Hematocrit 48.4 % (36.0-45.0); Lymphocytes % 27.6 % (15.3-44.8); MPV 9.3 fL (7.6-11.3); Platelets 243 thou/uL (152-406); Protime INR 1.06; RBC Red Blood Cell Count 5.69 M/uL (3.86-4.86)
--- NOTE | 2022-12-29 07:49 | RAD REPORT ---
EXAM DESCRIPTION: RAD - Chest Single View - 12/29/2022 7:42 am CLINICAL HISTORY: PALPITATIONS COMPARISON: Chest Pa And Lat (2 Views) dated 05/22/2021; Chest Pa And Lat (2 Views) dated 06/16/2016 FINDINGS: Lines: None. Lungs: No evidence of edema or pneumonia. Pleural: No significant pleural effusions or pneumothorax. Cardiac: The heart size is within normal limits. Mediastinum: Within normal limits. Bones: No acute fractures. Other: None IMPRESSION: No acute cardiopulmonary disease.
[2022-12-29 07:56] LABS: Albumin 3.9 g/dL (3.4-5.0); Bilirubin Direct 0.1 mg/dL (0-0.2); Bilirubin Indirect, Calculated 0.6 mg/dL (0.2-0.8); Bilirubin Total 0.7 mg/dL (0.2-1.0); Protein, Total 7.7 g/dL (6.4-8.2); Thyroid Stimulating Hormone 3.43 uIU/mL (0.358-3.740); Troponin High Sensitivity 8.7 pg/mL (<58.9)
[2022-12-29] MEDS ORDERED: ENOXAPARIN 100 MG/ML SYR SQ ONE (08:03)
[2022-12-29 08:06] LABS: Magnesium 2.1 mg/dL (1.6-2.4); Potassium 3.8 mEq/L (3.5-5.1)
--- NOTE | 2022-12-29 08:09 | ER ---
Nurse's Notes [facility] Name: Daisy Ren Age: 57 yrs Sex: Female : 1965 Arrival Date: 12/29/2022 Time: 06:59 Bed 6 Private MD: Parker Clark Diagnosis: Persistent atrial fibrillation-with RVR, NEW ONSET;Von Willebrand's disease-factor Presentation: 12/29 07:16 Chief complaint: Patient states: Palpitations started last night. Coronavirus screen: jl7 At this time, the client does not indicate any symptoms associated with coronavirus-19. Ebola Screen: No symptoms or risks identified at this time. Initial Sepsis Screen: Does the patient meet any 2 criteria? No. Patient's initial sepsis screen is negative. Does the patient have a suspected source of infection? No. Patient's initial sepsis screen is negative. Risk Assessment: Do you want to hurt yourself or someone else? Patient reports no desire to harm self or others. Onset of symptoms was December 28, 2022. 07:16 Method Of Arrival: Ambulatory [facility] 07:16 Acuity: BEE 2 jl7 Triage Assessment: 07:19 General: Appears in no apparent distress. uncomfortable, Behavior is calm, cooperative, jl7 appropriate for age. Pain: Denies pain. Neuro: Level of Consciousness is awake, alert, obeys commands, Oriented to person, place, time, situation. Cardiovascular: Patient's skin is warm and dry. Rhythm is atrial fibrillation with rapid ventricular response. Respiratory: Airway is patent Respiratory effort is even, unlabored, Respiratory pattern is regular, symmetrical. Derm: Skin is pink, warm \T\ dry. Historical: - Allergies: 07:19 Codeine; jl7 - Home Meds: 07:19 candesartan 16 mg Oral tab 1 tab once daily [Active]; montelukast 10 mg Oral tab 1 tab jl7 once daily [Active]; guanfacine 1 mg Oral tab 1 tab once daily [Active]; - PMHx: 07:19 Hypertension; von Willebrand factor; jl7 - PSHx: 07:19 Total abdominal hysterectomy; rectopexy; jl7 - Immunization history:: Adult Immunizations unknown. - Social history:: Smoking status: Patient denies any tobacco usage or history of. - Family history:: not pertinent. Screenin:[facility] ED Fall Risk Assessment (Adult) History of falling in the last 3 months, ld1 including since admission No falls in past 3 months (0 pts). Abuse screen: Denies threats or abuse. Denies injuries from another. Nutritional screening: No deficits noted. Tuberculosis screening: No symptoms or risk factors identified. Assessment: 11:35 General: Appears in no apparent distress. comfortable, Behavior is calm, cooperative, ld1 appropriate for age. Pain: Denies pain. Neuro: Level of Consciousness is awake, alert, obeys commands, Oriented to person, place, time, situation. Cardiovascular: Capillary refill < 3 seconds Patient's skin is warm and dry. Rhythm is atrial fibrillation. Respiratory: Airway is patent Respiratory effort is even, unlabored. GI: Abdomen is round non-distended. : No signs and/or symptoms were reported regarding the genitourinary system. EENT: No signs and/or symptoms were reported regarding the EENT system. Derm: No signs and/or symptoms reported regarding the dermatologic system. Musculoskeletal: No signs and/or symptoms reported regarding the musculoskeletal system. 21:17 General: attempted to call report. nurse not avaliable. lg3 Vital Signs: 07:16 BP 145 / 96; Pulse 153; Resp 19; Temp 98.7; Pulse Ox 99% ; Weight 113.4 kg; Height 5 jl7 ft. 6 in. ; Pain 0/10; 07:31 BP 153 / 87; Pulse 85; Resp 23; Pulse Ox 99% ; bp 11:35 BP 123 / 92; Pulse 79; Resp 18; Pulse Ox 100% on R/A; ld1 07:16 Body Mass Index 40.35 (113.40 kg, 167.64 cm) jl7 07:16 Pain Scale: Adult jl7 ED Course: 07:02 Patient arrived in ED. es 07:02 Parker Clark MD is Private Physician. es 07:06 Michael Ingram, FLY is Primary Nurse. bp 07:06 Denis Moyer MD is Attending Physician. nikolai 07:19 Triage completed. jl7 07:19 Arm band placed on right wrist. jl7 07:43 XRAY Chest (1 view) In Process Unspecified. EDMS 08:07 Marilee Coon MD is Hospitalizing Provider. nikolai 11:35 Patient has correct armband on for positive identification. Placed in gown. Bed in low ld1 position. Call light in reach. Side rails up X2. monitoring coordinator on. Pulse ox on. NIBP on. Door closed. Noise minimized. Warm blanket given. 11:35 No provider procedures requiring assistance completed. Inserted saline lock: 20 gauge ld1 in right antecubital area, using aseptic technique. Blood collected. 15:15 Patient admitted, IV remains in place. ld1 Administered Medications: 07:21 Drug: Metoprolol PO 50 mg Route: PO; bp 07:22 Drug: Aspirin PO Chewable Tablet 162 mg Route: PO; bp 07:30 Drug: NS 0.9% IV 1000 ml Route: IV; Rate: 125 ml/hr; Site: right antecubital; bp 07:30 Drug: Magnesium Sulfate IVPB 1 grams Route: IVPB; Infused Over: 1 hrs; Site: right bp antecubital; 07:30 Drug: Metoprolol IVP 5 mg Route: IVP; Site: right antecubital; bp 07:30 Drug: Enoxaparin Sub-Q 1 mg/kg Route: Sub-Q; Site: right lower abdomen; bp 07:30 Drug: Famotidine IVP 20 mg Route: IVP; Site: right antecubital; bp Medication: 15:15 VIS not applicable for this client. ld1 Outcome: 08:08 Decision to Hospitalize by Provider. nikolai 15:15 Admitted to ER Hold. Please see [facility] for further documentation. ld1 15:15 Condition: stable 15:15 Instructed on the need for admit. 22:01 Patient left the ED. lg3 Signatures: Dispatcher [employer] Denis Engel MD MD cha Salyer, Edna es Leal, Jahala RN RN jl7 Michael Ingram RN RN bp Gibson, Lacie, RN RN lg3 Jo Villagomez RN RN ld1
--- NOTE | 2022-12-29 08:09 | EDPHYS ---
Physician Documentation [facility] Name: Daisy Ren Age: 57 yrs Sex: Female : 1965 Arrival Date: 12/29/2022 Time: 06:59 Bed 6 Private MD: Parker Clark ED Physician Denis Moyer HPI: 12/29 07:51 This 57 yrs old Female presents to ER via Ambulatory with complaints of nikolai Palpitations. 07:51 The patient presents with a history of irregular heart beat, heart racing, heart nikolai skipping beats. Context: The symptoms occur at rest. Onset: The symptoms/episode began/occurred just prior to arrival, this morning. Duration: The patient or guardian reports a single episode, that is still ongoing. Modifying factors: The symptoms are aggravated by nothing. The symptoms are alleviated by nothing. Associated signs and symptoms: Pertinent positives: chest pain, SOB. Severity of symptoms: At their worst the symptoms were moderate in the emergency department the symptoms are unchanged. The patient has not experienced similar symptoms in the past. Historical: - Allergies: 07:19 Codeine; jl7 - Home Meds: 07:19 candesartan 16 mg Oral tab 1 tab once daily [Active]; montelukast 10 mg Oral tab 1 tab jl7 once daily [Active]; guanfacine 1 mg Oral tab 1 tab once daily [Active]; - PMHx: 07:19 Hypertension; von Willebrand factor; jl7 - PSHx: 07:19 Total abdominal hysterectomy; rectopexy; jl7 - Immunization history:: Adult Immunizations unknown. - Social history:: Smoking status: Patient denies any tobacco usage or history of. - Family history:: not pertinent. ROS: 07:51 Constitutional: Negative for fever, chills, and weight loss, Eyes: Negative for injury, nikolai pain, redness, and discharge, ENT: Negative for injury, pain, and discharge, Neck: Negative for injury, pain, and swelling, Respiratory: Negative for shortness of breath, cough, wheezing, and pleuritic chest pain, Abdomen/GI: Negative for abdominal pain, nausea, vomiting, diarrhea, and constipation, Back: Negative for injury and pain, : Negative for injury, bleeding, discharge, and swelling, MS/Extremity: Negative for injury and deformity, Skin: Negative for injury, rash, and discoloration, Neuro: Negative for headache, weakness, numbness, tingling, and seizure, Psych: Negative for depression, anxiety, suicide ideation, homicidal ideation, and hallucinations, Allergy/Immunology: Negative for hives, rash, and allergies, Endocrine: Negative for neck swelling, polydipsia, polyuria, polyphagia, and marked weight changes, Hematologic/Lymphatic: Negative for swollen nodes, abnormal bleeding, and unusual bruising. 07:51 Cardiovascular: Positive for chest pain, orthopnea, palpitations. Exam: 07:51 Constitutional: This is a well developed, well nourished patient who is awake, alert, nikolai and in no acute distress. Head/Face: Normocephalic, atraumatic. Eyes: Pupils equal round and reactive to light, extra-ocular motions intact. Lids and lashes normal. Conjunctiva and sclera are non-icteric and not injected. Cornea within normal limits. Periorbital areas with no swelling, redness, or edema. ENT: Nares patent. No nasal discharge, no septal abnormalities noted. Tympanic membranes are normal and external auditory canals are clear. Oropharynx with no redness, swelling, or masses, exudates, or evidence of obstruction, uvula midline. Mucous membranes moist. Neck: Trachea midline, no thyromegaly or masses palpated, and no cervical lymphadenopathy. Supple, full range of motion without nuchal rigidity, or vertebral point tenderness. No Meningismus. Chest/axilla: Normal chest wall appearance and motion. Nontender with no deformity. No lesions are appreciated. Respiratory: Lungs have equal breath sounds bilaterally, clear to auscultation and percussion. No rales, rhonchi or wheezes noted. No increased work of breathing, no retractions or nasal flaring. Abdomen/GI: Soft, non-tender, with normal bowel sounds. No distension or tympany. No guarding or rebound. No evidence of tenderness throughout. Back: No spinal tenderness. No costovertebral tenderness. Full range of motion. Female : Normal external genitalia. Skin: Warm, dry with normal turgor. Normal color with no rashes, no lesions, and no evidence of cellulitis. MS/ Extremity: Pulses equal, no cyanosis. Neurovascular intact. Full, normal range of motion. Neuro: Awake and alert, GCS 15, oriented to person, place, time, and situation. Cranial nerves II-XII grossly intact. Motor strength 5/5 in all extremities. Sensory grossly intact. Cerebellar exam normal. Normal gait. Psych: Awake, alert, with orientation to person, place and time. Behavior, mood, and affect are within normal limits. 07:51 Cardiovascular: Rate: tachycardic, actual rate is 135 bpm, Rhythm: irregularly irregular, Pulses: Pulses are 4+ in bilateral radial, brachial, femoral, popliteal, posterior tibial and and dorsalis pedis arteries.. Heart sounds: normal, Edema: is not appreciated, JVD: is not appreciated. 07:51 ECG was reviewed by the Attending Physician. Vital Signs: 07:16 BP 145 / 96; Pulse 153; Resp 19; Temp 98.7; Pulse Ox 99% ; Weight 113.4 kg; Height 5 jl7 ft. 6 in. ; Pain 0/10; 07:31 BP 153 / 87; Pulse 85; Resp 23; Pulse Ox 99% ; bp 11:35 BP 123 / 92; Pulse 79; Resp 18; Pulse Ox 100% on R/A; ld1 07:16 Body Mass Index 40.35 (113.40 kg, 167.64 cm) jl7 07:16 Pain Scale: Adult jl7 MDM: 07:06 Patient medically screened. nikolai 08:01 WADE Risk Score: Not Applicable. Differential diagnosis: arrythmia, dehydration. Data nikolai reviewed: vital signs, nurses notes, lab test result(s), EKG, radiologic studies, plain films. Consideration of Admission/Observation Patient was admitted/placed on observation. Escalation of care including admission/observation considered. I considered the following discharge prescriptions or medication management in the emergency department Medications were administered in the Emergency Department. See MAR. Independent interpretation of the following test(s) in the Emergency Department EKG: See my EKG interpretation above. Test considered but Not performed: CT: no ct chest. Historians other than the Patient: Spouse/Significant Other: informed. Care significantly affected by the following chronic conditions: Hypertension, von willibrands. Counseling: I had a detailed discussion with the patient and/or guardian regarding the historical points, exam findings, and any diagnostic results supporting the discharge/admit diagnosis, lab results, radiology results, the need for further work-up and treatment in the hospital. 12/29 07:09 Order name: Basic Metabolic Panel; Complete Time: 08:10 [facility] 12/29 07:09 Order name: CBC with Diff; Complete Time: 08:10 [facility] 12/29 07:09 Order name: LFT's; Complete Time: 08:10 [facility] 12/29 07:09 Order name: Magnesium; Complete Time: 08:10 [facility] 12/29 07:09 Order name: NT PRO-BNP; Complete Time: 08:10 [facility] 12/29 07:09 Order name: PT-INR; Complete Time: 08:10 [facility] 12/29 07:09 Order name: Troponin HS; Complete Time: 08:10 [facility] 12/29 07:09 Order name: TSH; Complete Time: 08:10 [facility] 12/29 10:27 Order name: Phosphorus EDMS 12/29 10:27 Order name: T4 Free EDMS 12/29 10:27 Order name: Magnesium EDMS 12/29 10:27 Order name: Thyroid Stimulating Hormone EDMS 12/29 10:38 Order name: Hemoglobin A1c EDMS 12/29 16:21 Order name: Urinalysis w/ reflexes EDMS 12/29 07:09 Order name: XRAY Chest (1 view); Complete Time: 08:10 [facility] 12/29 09:22 Order name: Echo with Doppler EDMS 12/29 07:09 Order name: EKG; Complete Time: 07:10 [facility] 12/29 07:09 Order name: Cardiac monitoring; Complete Time: 07:17 [facility] 12/29 07:09 Order name: EKG - Nurse/Tech; Complete Time: 07:17 [facility] 12/29 07:09 Order name: IV Saline Lock; Complete Time: 07:19 [facility] 12/29 07:09 Order name: Labs collected and sent; Complete Time: 07:19 [facility] 12/29 07:09 Order name: O2 Per Protocol; Complete Time: 07:19 [facility] 12/29 07:09 Order name: O2 Sat Monitoring; Complete Time: 07:19 [facility] EC:51 Rate is 124 beats/min. Rhythm is irregularly irregular. QRS [place] is Normal. MD interval nikolai is normal. QRS interval is normal. QT interval is normal. No Q waves. T waves are Normal. No ST changes noted. Clinical impression: Atrial Fibrillation and No evidence of ischemia. Interpreted by me. Reviewed by me. Administered Medications: 07:21 Drug: Metoprolol PO 50 mg Route: PO; bp 07:22 Drug: Aspirin PO Chewable Tablet 162 mg Route: PO; bp 07:30 Drug: NS 0.9% IV 1000 ml Route: IV; Rate: 125 ml/hr; Site: right antecubital; bp 07:30 Drug: Magnesium Sulfate IVPB 1 grams Route: IVPB; Infused Over: 1 hrs; Site: right bp antecubital; 07:30 Drug: Metoprolol IVP 5 mg Route: IVP; Site: right antecubital; bp 07:30 Drug: Enoxaparin Sub-Q 1 mg/kg Route: Sub-Q; Site: right lower abdomen; bp 07:30 Drug: Famotidine IVP 20 mg Route: IVP; Site: right antecubital; bp Disposition Summary: 12/29/22 08:08 Hospitalization Ordered Hospitalization Status: Observation nikolai Provider: Marilee Coon cha Condition: Stable nikolai Problem: new nikolai Symptoms: have improved nikolai Bed/Room Type: Standard nikolai Location: Telemetry/MedSurg (observation)(12/29/22 21:11) cg Room Assignment: [facility](12/29/22 21:11) Diagnosis - Persistent atrial fibrillation - with RVR, NEW ONSET nikolai - Von Willebrand's disease - factor nikolai Forms: - Medication Reconciliation Form nikolai - SBAR form nikolai - Leadership Thank You Letter nikolai Signatures: Dispatcher [employer] EDDenis Mtz MD MD cha Garcia, Cindy, RN RN Faustina Song RN RN Michael Desai RN Annamaria Abdalla Corrections: (The following items were deleted from the chart) 09: 08:11 EC Echo Doppler W/Color Flow+ECHO.RAD.BRZ ordered. EDHI EDHI 11:30 08:08 Telemetry/MedSurg (observation) nikolai zm 11:30 08:08 nikolai zm 20:57 11:30 ERHOLD- zm cg 21:11 11:30 [facility] ER HOLD zm cg 21:11 20:57 cg cg 21:11 21:11 cg cg
[2022-12-29] MEDS ORDERED: ACETAMINOPHEN 325 MG TABLET PO PRN (09:20)
[2022-12-29] MEDS ORDERED: TRAMADOL HCL 50 MG TAB PO PRN (09:20)
[2022-12-29] MEDS ORDERED: ONDANSETRON 4 MG/2 ML VIAL IV PRN (09:25)
--- NOTE | 2022-12-29 09:28 | P.HP ---
Certification for Inpatient Patient admitted to: Observation With expected LOS: <2 Midnights Patient will require the following post-hospital care: None Practitioner: I am a practitioner with admitting privileges, knowledge of patient current condition, hospital course, and medical plan of care. Services: Services provided to patient in accordance with Admission requirements found in Title 42 Section 412.3 of the Code of Federal Regulations Patient History Date of Service: 12/29/22 Reason for admission: Palpitations History of Present Illness: Patient is a 57-year-old female with a past medical history significant for hypertension, allergic rhinitis, von Willebrand disease who presents with complaint of palpations onset yesterday. Patient reported associated signs and symptoms of dizziness, lightheadedness and shortness of breath with exertion. Patient denies any other signs or symptoms. Symptoms are aggravated or relieved by nothing. Patient decided to present to the hospital for medical evaluation. Allergies codeine Allergy (Verified 12/29/22 09:27) UNK Home Medications: Candesartan Cilexetil 16 mg PO DAILY 12/29/22 Guanfacine HCl [Guanfacine HCl ER] 1 mg PO DAILY 12/29/22 Montelukast [Singulair] 10 mg PO DAILY 12/29/22 - Past Medical/Surgical History -: HTN -: Allergic Rhinitis -: Von Willebrand disease -: Total abdominal hysterectomy -: Rectopexy - Family History Mother -: GI disease, Cancer Father -: Other (see notes) (COPD ) - Social History Smoking Status: Never smoker Alcohol use: No CD- Drugs: No Caffeine use: Yes Place of Residence: Home Review of Systems General: Unremarkable Eyes: Unremarkable ENT: Unremarkable Respiratory: SOB with Excertion Cardiovascular: Light Headedness Gastrointestinal: Unremarkable Genitourinary: Unremarkable Musculoskeletal: Unremarkable Integumentary: Unremarkable Neurological: Other (Dizziness, lightheadedness) Lymphatics: Unremarkable Physical Examination - Physical Exam General: Alert, In no apparent distress, Oriented x3, Cooperative HEENT: Atraumatic, PERRLA, Mucous membr. moist/pink, EOMI, Sclerae nonicteric Neck: Supple, 2+ carotid pulse no bruit, No LAD, Without JVD or thyroid abnormality Respiratory: Clear to auscultation bilaterally, Normal air movement Cardiovascular: No edema, Normal S1 S2, Irregular heart rate/rhythm Capillary refill: <2 Seconds Gastrointestinal: Normal bowel sounds, Soft and benign, Non-distended, No tenderness Musculoskeletal: No clubbing, No swelling, No tenderness Integumentary: No rashes, No tenderness/swelling Neurological: Normal speech, Normal tone, Normal affect Lymphatics: No axilla or inguinal lymphadenopathy - Studies Laboratory Data (last 24 hrs) 12/29/22 12/29/22 12/29/22 07:20 07:20 07:20 WBC 7.90 Hgb 16.9 H Hct 48.4 H Plt Count 243 PT 11.7 INR 1.06 Sodium 139 Potassium 3.8 BUN 13 Creatinine 1.15 H Glucose 128 H Magnesium 2.1 Total Bilirubin 0.7 AST 16 ALT 22 Alkaline Phosphatase 67 Assessment and Plan - Plan --A-fib with RVR. Patient given a one-time dose of Lovenox in the ER, metoprolol IV\P.O. and sotalol p.o. Rate now controlled. Cardiology consulted. Echocardiogram pending to assess cardiac structures and functions. Telemetry to monitor for any malignant arrhythmia. Will await further recommendation from electrode cleaner. --CKD 3A. Baseline functions unknown. We will hold off on ARB's. Avoid nephrotoxins. We will continue to monitor renal functions. --Hypertension. Poorly controlled. Continue labetalol as needed. --Allergic rhinitis. Continue home medications. -- Class III obesity. Likely secondary to excess calories intake. Patient counseled on weight reduction, diet and exercise /therapy. --Von Willebrand disease. Stable. Continue supportive care. --DVT prophylaxis with SCDs. Discharge Plan: Home Plan to discharge in: 48 Hours - Advance Directives Does patient have a Living Will: No Does patient have a Durable POA for Healthcare: No - Code Status/Comfort Care Code Status Assessed: Yes Physician Review: Patient Assessed, Agree with Above Assessment and Plan Critical Care: No
[2022-12-29 10:27] LABS: Magnesium 2.4 mg/dL (1.6-2.4); Phosphorus 3.2 mg/dL (2.5-4.9); Thyroid Stimulating Hormone 2.45 uIU/mL (0.358-3.740)
[2022-12-29 14:24] VITALS: BMI 40.1
[2022-12-29 16:20] LABS: Specific Gravity 1.013 (1.005-1.030); Urine Bacteria None Seen /HPF (<20); Urine Bilirubin NEGATIVE (Negative); Urine Blood Negative (Negative); Urine Clarity Turbid (Clear); Urine Color Light-Yellow (Yellow); Urine Glucose NEGATIVE (Negative); Urine Mucus Slight /HPF (None Seen); Urine Protein NEGATIVE (Negative); Urine RBC <5 /HPF (None Seen); Urine Urobilinogen Normal (Normal); Urine pH 5.5 (5.0-7.0)
[2022-12-29] MEDS ORDERED: SOTALOL HCL 80 MG TAB PO ONE (20:01)
[2022-12-29] MEDS ORDERED: LABETALOL 20 MG/4ML SYRINGE IV PRN (21:11)
--- NOTE | 2022-12-30 01:59 | CON ---
Date of Consultation: 12/29/2022 Reason For Consultation: Atrial fibrillation, new onset. History Of Present Illness: A 57-year-old female with history of hypertension and Von Willebrand dis ease, presented to the emergency room with palpitations and that created some shortness of breath and started last night and could not sleep well during the day today. Things became worse. She present ed to the emergency room, found to be in atrial fibrillation with rapid ventricular response. Now, h er heart rate is controlled and she feels slightly better. Denies having any chest pain or shortness of breath. Past Medical History: As outlined above in the HPI. Medications: Refer to reconciliation sheet for detailed list. Allergies: NO KNOWN DRUG ALLERGIES. Family History: No premature coronary artery disease or cancer. Social History: She does not smoke or drink. Does not use any drugs. Review of Systems: All systems reviewed are negative except as mentioned in HPI. Physical Examination: Vital Signs: Reviewed. Head and Neck: Pupils are equal, reactive to light. Intact eye movements. No JVD. No cervical lym phadenopathy. Neck: Supple. Thyroid is not enlarged. Lungs: Clear to auscultation bilaterally. No wheezing, crackles. No accessory muscle use. Heart: Irregularly irregular. No extra sounds. Abdomen: Soft, nontender. Bowel sounds positive. No organomegaly. No masses or hernia. No rigidi ty, rebound. Extremities: No edema, clubbing, or cyanosis. Intact pulses. SKIN: No rash noted. Neurologic: Alert, awake, oriented x3. No acute events appreciated. Lymph nodes: No cervical or axillary lymphadenopathy. Investigations: BUN 13, creatinine 1.1. Troponin is negative. NT-proBNP is 282. Hemoglobin is 16. 9. Assessment/recommendation: 1.Atrial fibrillation, new onset. Started on sotalol 80 mg twice a day. Obtain an echo tomorrow an d after third dose of sotalol, if she does not convert to sinus rhythm, maybe she can benefit from TE E-guided cardioversion. The patient has von Willebrand disease. Need to check with Hematology to se e if anticoagulation can be performed if she is not a candidate for anticoagulation. At this point, her CHADS-VASc score is only 1. She could potentially benefit from bandage closure down the road. 2.Hypertension. Blood pressure is controlled. Continue current therapy. SR/MODL Voice ID: [id number] Report ID: [id number]
[2022-12-30 04:00] LABS: Absolute Lymphocytes (CBC) 2.4 K/uL (0.7-4.9); Hematocrit 44.4 % (36.0-45.0); Lymphocytes % 30.1 % (15.3-44.8); MCV 85.1 fL (80-100); MPV 9.4 fL (7.6-11.3); Platelets 208 thou/uL (152-406); RBC Red Blood Cell Count 5.22 M/uL (3.86-4.86)
[2022-12-30 05:28] LABS: Potassium 3.8 mEq/L (3.5-5.1)
[2022-12-30] MEDS: SOTALOL HCL 80 MG TAB PO SCH ×2 (06:00→17:22)
[2022-12-30] MEDS ORDERED: SOTALOL HCL 80 MG TAB PO ONE (08:57)
[2022-12-30] MEDS ORDERED: NA CHLORIDE 0.9% 500 ML IV ONE (08:58)
[2022-12-30] MEDS ORDERED: POTASSIUM CL SA 10 MEQ TAB PO ONE (09:00)
[2022-12-30] MEDS ORDERED: GUANFACINE HCL 1 MG PO SCH (09:00)
[2022-12-30] MEDS ORDERED: MONTELUKAST 10 MG TAB PO SCH (09:00)
[2022-12-30] MEDS: NA CHLORIDE 0.9% 1,000 ML IV SCH ×2 (10:47→20:50)
--- NOTE | 2022-12-30 15:53 | EKG ---
Test Date: 2022-12-29 Test Time: 07:10:58 Autopsy Assistant: MIKAL MEASUREMENT RESULTS: Intervals: Rate: 124 [place]: QRSD: 80 QT: 260 QTc: 373 [place]: P: [place]: QRS: 92 T: 46 INTERPRETIVE STATEMENTS: Atrial fibrillation with rapid ventricular response Rightward axis Low voltage QRS Septal infarct, age undetermined Abnormal ECG No previous ECG available for comparison Electronically Signed On 12-30-22 15:52:19 CDT by Adriano Telles
--- NOTE | 2022-12-30 17:15 | PN ---
Date of Progress Note: 12/30/2022 Subjective: Seen by bedside. Doing clinical well. She converts to sinus rhythm on sotalol. Review of Systems: No chest pain, shortness of breath, orthopnea, cough. No nausea, vomiting, diarrhea. All other syst ems reviewed and they were negative. Physical Examination: Vital Signs: Reviewed. Head and Neck: Pupils are equal, reactive to light. Intact eye movements. No JVD. No cervical lym phadenopathy. Neck supple. Thyroid is not enlarged. Lungs: Clear to auscultation bilaterally. No rhonchi, rales, or crackles. No accessory muscle use. Heart: Regular rate and rhythm. No extra sounds. Abdomen: Soft, nontender. Bowel sounds positive. No organomegaly. No masses or hernia. No rigidi ty, rebound. Extremities: No edema, clubbing, cyanosis. Intact pulses. Skin: No rash. Neurologic: Alert, awake, oriented x3. No acute events appreciated. Investigations: BUN 14, creatinine 1. Cardiac enzymes are negative. Hemoglobin 15.5. Assessment/recommendation: 1.Atrial fibrillation, new onset. Now, she is in normal sinus rhythm, converted on sotalol. D-dime r was negative. Continue sotalol 80 mg twice a day and her CHADS-VASc score is only 1. There is a c oncern about her bleeding, so now recommend baby aspirin and to consult further with the deckhand clam dredge on the von Willebrand disease and see if she will be a candidate for anticoagulation down the road. 2.Elevated NT-proBNP, mildly elevated. Echo was normal. Low-salt diet is encouraged. Patient can be released from Cardiology standpoint after doing an EKG after third dose of sotalol. If QTc interval is normal, she can be released and follow up as an outpatient. SR/MODL Voice ID: [id number] Report ID: [id number]
[2022-12-30] MEDS: GUANFACINE HCL PO SCH (20:35)
[2022-12-30] MEDS: MONTELUKAST 10 MG TAB PO SCH (20:36)
[2022-12-31 04:18] LABS: Potassium 4.3 mEq/L (3.5-5.1)
[2022-12-31] MEDS: SOTALOL HCL 80 MG TAB PO SCH ×2 (07:17→18:21)
--- NOTE | 2022-12-31 10:27 | ECHO ---
HEIGHT: 5 ft 6 in WEIGHT: 249 lb 1.958 oz DATE OF STUDY: 12/30/[address]: Denis Moyer MD 2-DIMENSIONAL: YES M.MODE: YES DOPPLER: YES COLOR FLOW: YES TDS: PORTABLE: YES DEFINITY: BUBBLE STUDY: DIAGNOSIS: ATRIAL FIBRILLATION CARDIAC HISTORY: CATHERIZATION: SURGERY: PROSTHETIC VALVE: PACEMAKER: MEASUREMENTS (cm) DIASTOLIC (NORMALS) SYSTOLIC (NORMALS) IVSd 1.1 (0.6-1.2) LA Diam 3.0 (1.9-4.0) LVEF 78% LVIDd 3.4 (3.5-5.7) LVIDs 1.8 (2.0-3.5) %FS 46% LVPWd 1.2 (0.6-1.2) Ao Diam 2.8 (2.0-3.7) 2 DIMENSIONAL ASSESSMENT: RIGHT ATRIUM: NORMAL LEFT ATRIUM: NORMAL RIGHT VENTRICLE: NORMAL LEFT VENTRICLE: NORMAL TRICUSPID VALVE: NORMAL MITRAL VALVE: NORMAL PULMONIC VALVE: NORMAL AORTIC VALVE: NORMAL PERICARDIAL EFFUSION: NONE AORTIC ROOT: NORMAL LEFT VENTRICULAR WALL MOTION: NORMAL DOPPLER/COLOR FLOW: NORMAL COMMENTS: 1. NORMAL LEFT VENTRICULAR EJECTION FRACTION 60-65% 2. NORMAL WALL MOTION 3. ATRIAL FIBRILLATION 4. NORMAL ECHOCARDIOGRAM TECHNOLOGIST: LAQUITA PAZE
[2022-12-31] MEDS: NA CHLORIDE 0.9% 1,000 ML IV SCH (14:32)
--- NOTE | 2022-12-31 20:21 | PN ---
Date of Progress Note: 12/31/2022 Subjective: Seen by bedside. She is still in AFib and when she gets up and moves around, her heart rate goes up to 140, and she becomes short of breath. Review of Systems: Positive for palpitations, shortness of breath. No chest pain. No nausea, vomiting, or diarrhea. N o abdominal pain. No dysuria, polyuria, or urinary urgency. All other systems were reviewed, they w ere negative. Objective: Vital Signs: Reviewed. Head and Neck: Pupils are equal, reactive to light. Intact eye movements. No JVD. No cervical lym phadenopathy. Neck is supple. Thyroid is not enlarged. Lungs: Clear to auscultation bilaterally. No rhonchi, wheezings, or crackles. No accessory muscle use. Heart: Irregularly irregular. No extra sounds. Abdomen: Soft, nontender. Bowel sounds positive. No organomegaly. No masses or hernia. No rigidi ty or rebound. Extremities: No edema, clubbing, or cyanosis. Intact pulses. Skin: No rash. No nodule. Neurological: Alert, awake, oriented x3. No acute focal deficits appreciated. Investigations: Labs reviewed. Assessment And Recommendations: 1.Atrial fibrillation, still symptomatic and in atrial fibrillation. We will plan for BILL-guided ca rdioversion tomorrow and continue sotalol and if we do a cardioversion, she will need to take Eliquis for at least 4 weeks. 2.Hypertension. Blood pressure is controlled. SR/MODL Voice ID: [id number] Report ID: [id number]
[2022-12-31] MEDS: GUANFACINE HCL PO SCH (20:34)
[2022-12-31] MEDS: MONTELUKAST 10 MG TAB PO SCH (20:35)
[2022-12-31 20:45] VITALS: O2SAT 98
[2022-12-31] MEDS: APIXABAN 2.5 MG TABLET PO SCH (21:40)
--- NOTE | 2023-01-01 00:27 | P.PN ---
Subjective Date of Service: 12/30/22 Subjective: No new changes, No C/O voiced, Improving Review of Systems 10-point ROS is otherwise unremarkable Physical Examination - Vital Signs Temperature: 97.6 F Blood Pressure: 116/81 Pulse: 82 Respirations: 14 Pulse Ox (%): 99 - Physical Exam General: Alert, In no apparent distress HEENT: Atraumatic, PERRLA, EOMI Neck: Supple, JVD not distended Respiratory: Clear to auscultation bilaterally, Normal air movement Cardiovascular: Regular rate/rhythm, Normal S1 S2 Gastrointestinal: Normal bowel sounds, No tenderness Musculoskeletal: No tenderness Integumentary: No rashes Neurological: Normal speech, Normal tone, Normal affect Lymphatics: No axilla or inguinal lymphadenopathy - Studies Laboratory Data (last 24 hrs) 12/31/22 02:01 Sodium 140 Potassium 4.3 D BUN 15 Creatinine 0.99 Glucose 86 Medications List Reviewed: Yes Assessment & Plan - Problems (Diagnosis) (1) Atrial fibrillation with rapid ventricular response Current Visit: Yes Status: Acute (2) Von Willebrand disease Current Visit: Yes Status: Acute - Plan 1. Will continue medications for rate control and anticoagulation 2. Continue with strict blood pressure control 3. Echocardiogram 4. Cardiology consultation 5. Repeat chest x-ray 6. GI and DVT prophylaxis - Advance Directives Does patient have a Living Will: No Does patient have a Durable POA for Healthcare: No Physician Review: Patient Assessed, Agree with Above Assessment and Plan
--- NOTE | 2023-01-01 00:29 | P.PN ---
Date of Service: 12/31/22 Subjective Subjective: No new changes, No C/O voiced, Improving; spoke with hematology and they recommended Eliquis 2.5 mg twice daily. Review of Systems 10-point ROS is otherwise unremarkable Physical Examination - Vital Signs Reviewed - Physical Exam General: Alert, In no apparent distress Respiratory: Clear to auscultation bilaterally, Normal air movement Cardiovascular: Regular rate/rhythm, Normal S1 S2 Gastrointestinal: Normal bowel sounds, No tenderness Musculoskeletal: No tenderness Integumentary: No rashes Neurological: Normal speech, Normal tone, Normal affect Assessment & Plan - Problems (Diagnosis) (1) Atrial fibrillation with rapid ventricular response Current Visit: Yes Status: Acute (2) Von Willebrand disease Current Visit: Yes Status: Acute - Plan Continue plan of care as mentioned below: 1. Will continue medications for rate control and anticoagulation; spoke with hematology and they recommended Eliquis 2.5 mg twice daily. 2. Continue with strict blood pressure control 3. Echocardiogram reviewed 4. Cardiology consultation reviewed 5. Repeat chest x-ray 6. GI and DVT prophylaxis - Advance Directives Does patient have a Living Will: No Does patient have a Durable POA for Healthcare: No Physician Review: Patient Assessed, Agree with Above Assessment and Plan
[2023-01-01] MEDS: SOTALOL HCL 80 MG TAB PO SCH (05:49)
[2023-01-01] MEDS: NA CHLORIDE 0.9% 1,000 ML IV SCH (07:45)
[2023-01-01] MEDS: APIXABAN 2.5 MG TABLET PO SCH (07:46)
[2023-01-01] MEDS ORDERED: SIMPLE SYRUP 20 ML, LIDOCAINE 2% VISCOUS ORAL 20 ML MM ONE ×2 (08:00)
[2023-01-01] MEDS ORDERED: ASPIRIN EC 81 MG TAB PO SCH (09:00)
[2023-01-01] MEDS ORDERED: FLUMAZENIL 0.1 MG/ML (5 mL VIAL) IV ONE (09:14)
[2023-01-01] MEDS ORDERED: MIDAZOLAM HCL 2 MG/2 ML INJ ONE (09:14)
[2023-01-01] MEDS ORDERED: ATROPINE SULF 1 MG/10 ML SYR IV ONE (09:15)
[2023-01-01] MEDS ORDERED: METOPROLOL TARTRATE 5 MG/5 ML INJ IV ONE (09:15)
[2023-01-01] MEDS ORDERED: NA CHLORIDE 0.9% 0 ML ONE (09:15)
--- NOTE | 2023-01-01 10:38 | P.DS ---
Discharge Date: 01/01/23 Disposition: ROUTINE DISCHARGE Discharge Condition: GOOD Reason for Admission: Palpitations Consultations: Cardiology - Problems (1) Atrial fibrillation with rapid ventricular response Current Visit: Yes Status: Acute (2) Von Willebrand disease Current Visit: Yes Status: Acute Brief History of Present Illness: Patient is a 57-year-old female with a past medical history significant for hypertension, allergic rhinitis, von Willebrand disease who presents with complaint of palpations onset yesterday. Patient reported associated signs and symptoms of dizziness, lightheadedness and shortness of breath with exertion. Patient denies any other signs or symptoms. Symptoms are aggravated or relieved by nothing. Patient decided to present to the hospital for medical evaluation. Hospital Course: Patient was started on sotalol. Patient did not cardiovert medically so they did a echo with cardioversion. Spoke with hematology, Dr. Benavidez and she recommended Eliquis 2.5 twice daily as patient has von Willebrand's disease which I believe is type II. Patient is clinically doing well and at this time she is stable for discharge home with outpatient cardiology follow-up along with PCP and hematology follow-up. If there is any bleeding noted she needs to return to the emergency room. Vital Signs/Physical Exam: Temp Pulse Resp BP Pulse Ox 97.5 F 74 12 99/65 98 01/01/23 08:00 01/01/23 08:00 01/01/23 08:00 01/01/23 08:00 01/01/23 08:00 General: Alert, In no apparent distress, Oriented x3 Laboratory Data at Discharge: WBC 8.10 thou/uL (4.3-10.9) 12/30/22 03:13 Hgb 15.5 g/dL (12.0-15.0) H D 12/30/22 03:13 Hct 44.4 % (36.0-45.0) 12/30/22 03:13 Plt Count 208 thou/uL (152-406) 12/30/22 03:13 PT 11.7 SECONDS (9.5-12.5) 12/29/22 07:20 INR 1.06 12/29/22 07:20 Sodium 140 mEq/L (136-145) 12/31/22 02:01 Potassium 4.3 mEq/L (3.5-5.1) D 12/31/22 02:01 BUN 15 mg/dL (7-18) 12/31/22 02:01 Creatinine 0.99 mg/dL (0.55-1.02) 12/31/22 02:01 Glucose 86 mg/dL (74-106) 12/31/22 02:01 Phosphorus 3.2 mg/dL (2.5-4.9) 12/29/22 09:50 Magnesium 2.4 mg/dL (1.6-2.4) 12/29/22 09:50 Total Bilirubin 0.7 mg/dL (0.2-1.0) 12/29/22 07:20 AST 16 U/L (15-37) 12/29/22 07:20 ALT 22 U/L (13-56) 12/29/22 07:20 Alkaline Phosphatase 67 U/L (45-117) 12/29/22 07:20 Triglycerides 119 mg/dL (<150) 12/30/22 03:13 Cholesterol 150 mg/dL (<200) 12/30/22 03:13 HDL Cholesterol 39 mg/dL (40-60) L 12/30/22 03:13 Cholesterol/HDL Ratio 3.85 12/30/22 03:13 Home Medications: Candesartan Cilexetil 16 mg PO DAILY 12/29/22 Guanfacine HCl [Guanfacine HCl ER] 1 mg PO DAILY 12/29/22 Montelukast [Singulair*] 10 mg PO DAILY 12/29/22 Aspirin [Aspirin EC 81 MG] 81 mg PO DAILY #30 tab 12/31/22 Sotalol HCl [Betapace*] 80 mg PO BID 6AM 6PM #60 tab 12/31/22 Apixaban [Eliquis *] 2.5 mg PO BID #30 tab 01/01/23 New Medications: Aspirin [Aspirin EC 81 MG] 81 mg PO DAILY #30 tab Sotalol HCl [Betapace*] 80 mg PO BID 6AM 6PM #60 tab Apixaban [Eliquis *] 2.5 mg PO BID #30 tab Physician Discharge Instructions: -DC IV and DC home -Follow-up with PCP in 1 to 2 weeks -Follow-up with Cardiology in 1 to 2 weeks -Low recommend following up with a [employer] as patient has von Willebrand's disease and they can determine what best to use for anticoagulation with her history of atrial fibrillation. -Please call Dr. Coon at [phone] if any questions regarding hospital stay -Please call nursing station at [phone] if any nursing or medication questions -Return to the emergency room if symptoms worsen Diet: AHA Activity: Fall precautions Followup: Parker Clark MD [Primary Care Provider] - Time spent managing pt's care (in minutes): 35
--- NOTE | 2023-01-01 10:40 | OP ---
Date of Procedure: 01/01/2023 Surgeon: ARMEN LEDEZMA Procedure Performed: 1.Transesophageal echocardiogram. 2.Electrical cardioversion into normal sinus rhythm using synchronized 200 joules shock. Indication: Atrial fibrillation with rapid ventricular response. Description Of Procedure: After risks, benefits, alternatives were explained, the patient agreed to procedure and signed informed consent. The patient was brought into the PACU area and after proper t delma-out, the back of throat was numbed using viscous and lidocaine. I gave 5 mg of Versed. BILL prob e was inserted. The appendage was clear of thrombus. I removed BILL probe and then a 200 joules elec trical cardioversion was performed in synchronized fashion successfully converting the rhythm to norm al sinus rhythm. Conclusion: Successful BILL-guided cardioversion. Plan: Continue sotalol and start Eliquis 5 mg twice a day. SR/MODL Voice ID: [id number] Report ID: [id number]
--- NOTE | 2023-01-01 10:45 | PN ---
Date of Progress Note: 01/01/2023 Subjective: Seen by bedside. She continued to be in atrial fibrillation and planning for the cardio version. Review of Systems: No chest pain, shortness of breath, orthopnea, cough. No nausea, vomiting, diarrhea. All other syst ems reviewed and they were negative. Physical Examination: Vital Signs: Reviewed. Head and Neck: Pupils are equal, reactive to light. Intact eye movements. No JVD. No cervical lym phadenopathy. Neck is supple. Thyroid is not enlarged. Lungs: Clear to auscultation bilaterally. No rhonchi, wheezing, or crackles. No accessory muscle u se. Heart: Irregularly irregular. No extra sounds. Abdomen: Soft, nontender. Bowel sounds positive. No organomegaly. No masses or hernia. No rigidi ty or rebound. Extremities: No edema, clubbing, or cyanosis. Intact pulses. Skin: No rash. Neurologic: Alert, awake, oriented x3. No acute focal deficits appreciated. Investigations: Labs were reviewed. Assessment And Recommendations: 1.Atrial fibrillation, very symptomatic. Planning for BILL-guided cardioversion. Continue sotalol a nd Eliquis 5 mg twice a day for at least a week and then drop it down to 2.5 mg twice a day. 2.Hypertension. Blood pressure is controlled. Continue current management. The patient can be released today from Cardiology standpoint after the cardioversion. SR/MODL Voice ID: [id number] Report ID: [id number]
[2023-01-01] MEDS ORDERED: APIXABAN 5 MG TABLET PO SCH ×3 (11:00→21:00)
[2023-01-01 12:06] VITALS: BP 88/60; TEMP 97
--- NOTE | 2023-01-01 13:31 | TEE ---
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 TRANSESOPHAGEAL ECHOCARDIOGRAM WAS INSERTED, NO DIFFICULTY 2. NO LEFT ATRIAL APPENDAGE THROMBUS IS SEEN 3. LEFT VENTRICULAR EJECTION FRACTION IS NORMAL AT 55-60% TECHNOLOGIST: LAQUITA PAEZ
--- NOTE | 2023-01-02 15:24 | EKG ---
Test Date: 2023-01-01 Test Time: 10:16:00 Secondary English Teacher: CAROL MEASUREMENT RESULTS: Intervals: Rate: 77 [place]: 196 QRSD: 84 QT: 408 QTc: 461 [place]: P: 61 OH: 196 QRS: 94 T: 51 INTERPRETIVE STATEMENTS: Normal sinus rhythm Rightward axis Low voltage QRS Borderline ECG Compared to ECG 12/29/2022 07:10:58 Atrial fibrillation no longer present Myocardial infarct finding no longer present Electronically Signed On 01-02-23 15:21:32 CDT by Adriano Telles
== END 2023-01-01 13:25 | disposition home or self-care (01) | DRG 309 ==
LOC: ER 06:59 → ERHOLD 09:17 → 2ND 21:13 → OBSVTOIN 12-31 13:36
PROVIDERS: ADMIT Hospitalist; ATTEND Hospitalist
PROC: 5A2204Z Restoration of Cardiac Rhythm, Single (ICD-10-PCS; principal; 2023-01-01)
PROC: B24BZZ4 Ultrasonography of Heart with Aorta, Transesophageal (ICD-10-PCS; 2023-01-01)
DX: I48.19 Other persistent atrial fibrillation (principal); D68.029 Von Willebrand disease, type 2, unspecified; Z68.41 Body mass index [BMI] 40.0-44.9, adult; I12.9 Hypertensive chronic kidney disease with stage 1 through stage 4 chronic kidney disease, or unspecified chronic kidney disease; N18.31 Chronic kidney disease, stage 3a; J30.9 Allergic rhinitis, unspecified; E66.01 Morbid (severe) obesity due to excess calories; Z71.3 Dietary counseling and surveillance; Z79.899 Other long term (current) drug therapy; Z88.5 Allergy status to narcotic agent; Z90.710 Acquired absence of both cervix and uterus; Z83.79 Family history of other diseases of the digestive system; Z83.6 Family history of other diseases of the respiratory system
CPT/HCPCS: 36415; 71045; 80048; 80061; 80076; 81001; 83036; 83735; 83880; 84100; 84439; 84443; 84484; 85025; 85379; 85610; 92960; 93005; 93306; 93312; 96372; 96374; 96375; 99285; G0378; J0461; J1650; J2250; J3475; J7030; J7040